=== PATIENT | female | born 1960 | race African-American/Black ===

== ENCOUNTER 2020-04-19 15:41 | Outpatient (CLI) | payer OTHER, SELFPAY ==
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
== END 2020-04-19 15:42 | disposition home or self-care (01) ==
LOC: ANHIMG 15:48
PROVIDERS: PCP Internal Medicine; Visit Provider Internal Medicine
DX: M19.011 Primary osteoarthritis, right shoulder (principal); M19.012 Primary osteoarthritis, left shoulder
CPT/HCPCS: 71130

== ENCOUNTER 2020-05-16 16:18 | Outpatient (CLI) | payer OTHER, SELFPAY ==
--- NOTE | ~2020-05-16 | MM_ITS ---
EXAMINATION: MM screening deandre BI w berna HISTORY: Screening mammogram, family history of breast cancer in her sister. TECHNIQUE: Craniocaudal and mediolateral oblique 3-D tomosynthesis images were obtained and synthetic 2-D images were generated. CAD analysis was submitted and interpreted. COMPARISON: No prior mammogram is available for comparison at this institution. BREAST PARENCHYMAL COMPOSITION: There are scattered areas of fibroglandular density. FINDINGS: There is no evidence of suspicious mass, calcification, or architectural distortion to sugg est malignancy in either breast. IMPRESSION: 1. No mammographic evidence of malignancy. 2. Recommend routine screening mammography in one year. BI-RADS Category 1: Negative Reviewed, dictated and finalized at location A. [employer]
== END 2020-05-16 16:19 | disposition home or self-care (01) ==
LOC: ANHIMG 16:21
PROVIDERS: PCP Internal Medicine; Visit Provider Internal Medicine
DX: Z12.31 Encounter for screening mammogram for malignant neoplasm of breast (principal)
CPT/HCPCS: 77063; 77067

== ENCOUNTER 2020-05-18 17:06 | Outpatient (CLI) | payer OTHER, SELFPAY ==
--- NOTE | ~2020-05-18 | CT_ITS ---
EXAMINATION: CT chest wo con DATE: 05/18/2020 17:34 INDICATION: sternoclavicular joint pain TECHNIQUE: Computed tomography (CT) of the chest was performed without intravenous contrast. Addition al 3D reconstructions utilizing coronal maximum intensity projection (MIP) were performed. Automated exposure control and iterative reconstruction technique were employed. The dose-length product was 21 4.13 mGy-cm. COMPARISON: None FINDINGS: 2 mm right upper lobe nodule. No pneumonia, pulmonary edema, pleural effusion or pneumothorax. Heart size is normal. No pericardial effusion. Ectatic ascending thoracic aorta measuring up to 3.8 cm. No pathologically enlarged thoracic lymphadenopathy. Visualized upper abdomen is unremarkable. Sternocla vicular joints appear normal with no significant joint space narrowing, osteophytosis or erosions or joint effusion. Suggestion of enlargement of the thyroid which demonstrates decreased attenuation amie ing it difficult to distinguish from the surrounding vascular structures and strap muscles. Moderate lower cervical and mild thoracic spondylosis. There are 3 subtle sclerotic lesions in the sternum and one in the manubrium. IMPRESSION: 1. Normal bilateral sternoclavicular joints. 2. Suggestion of thyroid enlargement with decreased density which suggest possibility of thyroiditis with edema. Correlate clinically and could consider thyroid ultrasound. 3. A few subtle regions of sclerosis within the sternum and manubrium of indeterminate etiology or si gnificance. These all align along the midline suggesting these could be developmental but differentia l would include metastatic disease particularly if there has been history of prior malignancy. Could consider bone scan for further evaluation. Reviewed, dictated and finalized at [facility]. PREVENTION SPECIALIST IMPRESSION: 1. Normal bilateral sternoclavicular joints. 2. Suggestion of thyroid enlargement with decreased density which suggest possi bility of thyroiditis with edema. Correlate clinically and could consider thyro id ultrasound. 3. A few subtle regions of sclerosis within the sternum and manubrium of indete rminate etiology or significance. These all align along the midline suggesting these could be developmental but differential would include metastatic disease particularly if there has been history of prior malignancy. Could consider bone scan for further evaluation.
== END 2020-05-18 17:07 | disposition home or self-care (01) ==
PROVIDERS: PCP Internal Medicine; Visit Provider Orthopaedic Surgery
DX: R07.89 Other chest pain (principal)
CPT/HCPCS: 71250

== ENCOUNTER 2022-10-04 11:40 | Outpatient (CLI) | payer OTHER, SELFPAY ==
[2022-10-04 12:56] LABS: Basophils Percent Auto 0.4 % (0.2-1.2); Eosinophils Absolute Auto 0.2 K/mm3 (0-0.3); Eosinophils Percent Auto 3.5 % (0-4.4); Hematocrit 45.8 % (37.0-47.0); Hemoglobin 15.1 g/dL (12.0-15.0); Immature Granulocyte Absolute 0.01 K/mm3 (0.00-0.031); Immature Granulocyte Percent A 0.2 % (0-0.5); Lymphocytes Absolute Auto 1.81 K/mm3 (0.9-3.2); Lymphocytes Percent Auto 35.6 % (18.3-44.2); Mean Corpuscular Hemoglobin 28.5 pg (26-34); Mean Corpuscular Volume 86.6 fl (80-100); Mean Platelet Volume 10.6 fl (7.4-10.4); Monocytes Absolute Auto 0.3 K/mm3 (0.1-0.6); Monocytes Percent Auto 5.7 % (2.6-8.5); Neutrophils Absolute Auto 2.8 K/mm3 (1.3-6.7); Neutrophils Percent Auto 54.6 % (45.5-73.1); Platelet Count Result 173 k/mm3 (150-375); Red Blood Count 5.29 M/mm3 (4.2-5.4); Red Cell Distribution Width 13.4 % (11.5-14.5); White Blood Count 5.1 K/mm3 (4.5-10.0)
[2022-10-04 13:10] LABS: Alanine Aminotransferase 19 U/L (6-35); Albumin Level 4.5 g/dL (3.5-5.1); Alkaline Phosphatase 68 U/L (38-126); Anion Gap 5 mmol/L (8-16); Aspartate Amino Transferase 28 U/L (14-36); Bilirubin,Total 0.4 mg/dL (0.2-1.3); Blood Urea Nitrogen 13 mg/dL (7-17); Calcium 9.4 mg/dL (8.4-10.2); Carbon Dioxide 28 mmol/L (22-30); Chloride 108 mmol/L (98-107); Cholesterol 212 mg/dL (0-200); Estimated Glomerular Filt Rate > 60; Glucose 94 mg/dL (65-110); HDL Direct 55 mg/dL; Potassium 3.8 mmol/L (3.4-5.0); Sodium 141 mmol/L (137-145); Triglycerides 57 mg/dL (<150)
[2022-10-04 13:21] LABS: LDL Cholesterol Direct 109 mg/dL
== END 2022-10-04 11:41 | disposition home or self-care (01) ==
PROVIDERS: PCP Internal Medicine; Visit Provider Nurse Practitioner Family
DX: Z00.00 Encounter for general adult medical examination without abnormal findings (principal); R53.83 Other fatigue
CPT/HCPCS: 36415; 80053; 80061; 84443; 85025

== ENCOUNTER 2023-01-12 18:06 | Emergency (ER) | payer OTHER, SELFPAY ==
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
[2023-01-12 18:16] VITALS: BP 136/102; PULSE 102; RESP 18; TEMP 36.6; O2SAT 98
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
[2023-01-12] MEDS: IBUPROFEN 400 MG TABLET 800 MG PO (19:24)
== END 2023-01-12 20:24 | disposition home or self-care (01) ==
PROVIDERS: Emergency Provider Physician Assistant; PCP Family Medicine
DX: S16.1XXA Strain of muscle, fascia and tendon at neck level, initial encounter (principal); F17.210 Nicotine dependence, cigarettes, uncomplicated; V43.52XA Car driver injured in collision with other type car in traffic accident, initial encounter
CPT/HCPCS: 70450; 72125; 99284; A9270

== ENCOUNTER 2024-01-07 16:20 | Emergency (ER) | payer OTHER, SELFPAY ==
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
[2024-01-07 16:30] VITALS: BP 123/73; PULSE 84; RESP 15; TEMP 36.8; O2SAT 97
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
[2024-01-07] MEDS: KETOROLAC (*BKC) 60 MG/2 ML VIAL IM (17:17)
[2024-01-07 17:46] VITALS: BP 114/73; PULSE 86; RESP 14; TEMP 36.8; O2SAT 98
== END 2024-01-07 17:50 | disposition home or self-care (01) ==
PROVIDERS: Emergency Provider Nurse Practitioner Family; PCP Family Medicine
DX: S16.1XXA Strain of muscle, fascia and tendon at neck level, initial encounter (principal); I10 Essential (primary) hypertension; F17.210 Nicotine dependence, cigarettes, uncomplicated; M47.812 Spondylosis without myelopathy or radiculopathy, cervical region; M47.816 Spondylosis without myelopathy or radiculopathy, lumbar region; M47.814 Spondylosis without myelopathy or radiculopathy, thoracic region; V49.40XA Driver injured in collision with unspecified motor vehicles in traffic accident, initial encounter
CPT/HCPCS: 71250; 72125; 72128; 72131; 74176; 96372; 99284; J1885

== ENCOUNTER 2024-04-05 11:31 | Outpatient (CLI) | payer OTHER, SELFPAY ==
[2024-04-05 12:12] LABS: Basophils Percent Auto 0.5 % (0.2-1.2); Eosinophils Absolute Auto 0.1 K/mm3 (0-0.3); Eosinophils Percent Auto 2.3 % (0-4.4); Hematocrit 43.2 % (37.0-47.0); Hemoglobin 14.8 g/dL (12.0-15.0); Immature Granulocyte Absolute 0.01 K/mm3 (0.00-0.031); Immature Granulocyte Percent A 0.2 % (0-0.5); Lymphocytes Absolute Auto 1.88 K/mm3 (0.9-3.2); Lymphocytes Percent Auto 30.6 % (18.3-44.2); Mean Corpuscular HGB Conc 34.3 g/dl (32-36); Mean Corpuscular Volume 84.7 fl (80-100); Mean Platelet Volume 10.7 fl (7.4-10.4); Monocytes Absolute Auto 0.3 K/mm3 (0.1-0.6); Monocytes Percent Auto 4.9 % (2.6-8.5); Neutrophils Absolute Auto 3.8 K/mm3 (1.3-6.7); Neutrophils Percent Auto 61.5 % (45.5-73.1); Platelet Count Result 182 k/mm3 (150-375); Red Cell Distribution Width 13.1 % (11.5-14.5); White Blood Count 6.1 K/mm3 (4.5-10.0)
[2024-04-05 12:20] LABS: Alanine Aminotransferase 16 U/L (6-35); Albumin Level 4.3 g/dL (3.5-5.1); Alkaline Phosphatase 65 U/L (38-126); Anion Gap 6 mmol/L (4-12); Aspartate Amino Transferase 26 U/L (14-36); Bilirubin,Total 0.3 mg/dL (0.2-1.3); Blood Urea Nitrogen 12 mg/dL (7-17); Calcium 9.1 mg/dL (8.4-10.2); Carbon Dioxide 28 mmol/L (22-30); Chloride 107 mmol/L (98-107); Cholesterol 220 mg/dL (0-200); Estimated Glomerular Filt Rate > 60; Glucose 91 mg/dL (65-110); HDL Direct 49 mg/dL; Potassium 3.7 mmol/L (3.4-5.0); Sodium 141 mmol/L (137-145); Triglycerides 76 mg/dL (<150)
[2024-04-05 12:33] LABS: Hemoglobin A1C 5.4 % (<5.7); LDL Cholesterol Direct 116 mg/dL
[2024-04-05 12:57] LABS: Free T4 Free Thyroxine 0.75 ng/mL (0.78-2.19)
== END 2024-04-05 11:32 | disposition home or self-care (01) ==
LOC: ANHLAB 11:33
PROVIDERS: PCP Family Medicine; Visit Provider Nurse Practitioner Family
DX: E78.5 Hyperlipidemia, unspecified (principal); I10 Essential (primary) hypertension; R79.89 Other specified abnormal findings of blood chemistry
CPT/HCPCS: 36415; 80053; 80061; 83036; 84439; 84443; 85025